=== PATIENT | female | born 1995 | race Hispanic/Latino ===

== ENCOUNTER → 2017-12-05 | Outpatient (CLI) | payer BC, MEDICARE ==
[~2017-12-05] MED LIST: LANTUS100 UNIT/1; NOVOLOG100 UNITS1
--- NOTE | 2017-12-05 08:39 | Diagnostic Imaging Report ---
PROCEDURE:US ABDOMEN LIMITED COMPARISON:Report of outside CT on 11/22/17 is uploaded but images are not available for review. INDICATIONS:Abnormal CT Of Gallbladder FINDINGS: LIVER: Size:13 cm in the right nidclavicular line, normal Appearance:Normal echogenicity, smooth contour Mass:No focal masses GALLBLADDER: Stones/Sludge:None Appearance:No wall thickening, pericholecystic fluid or hydrops. No evidence of mass. Sonographic Manuel's Sign:Negative BILE DUCTS: Intrahepatic Ducts:No dilation Extrahepatic Ducts:Common bile duct measures 0.3 cm, no dilatation. PANCREAS: Visualized portions of the neck and proximal body are normal. RIGHT KIDNEY: Size:11 cm in length Echogenicity:Normal Collecting System:No hydronephrosis Stone:None Cyst/Mass:None VESSELS: Main Portal Vein:1.3 cm, normal size with hepatopedal flow. FREE FLUID: No ascites or pleural effusions. CONCLUSION: Normal right upper quadrant ultrasound. No sonographic evidence of gallbladder mass. Dictated by: BRUNO POLANCO M.D. on 12/05/2017 at 8:44 Electronically approved by: BRUNO POLANCO M.D. on 12/05/2017 at 8:44
== END ==
LOC: US 07:56
PROVIDERS: ATTEND Family Medicine
DX: R93.2 Abnormal findings on diagnostic imaging of liver and biliary tract (principal)
CPT/HCPCS: 76705

== ENCOUNTER → 2018-03-31 | Outpatient (CLI) | payer BC ==
[~2018-03-31] MED LIST changes: +HYOSCYAMINE SULFATE 0.5 MG/ML INJ ONE; +LIDOCAINE HCL 2% LOCAL INJ 5 ML SDV VIAL INJ ONE; +PROPOFOL IV EMULSION 10 MG/ML 50 ML VIAL ONE
--- NOTE | 2018-03-31 17:39 | Diagnostic Imaging Report ---
EXAM: CT Abdomen and Pelvis WITHOUT contrast INDICATION: ^RIGHT FLANK PAIN COMPARISON: Right upper quadrant ultrasound dated TECHNIQUE: Abdomen and pelvis were scanned utilizing a multidetector helical scanner from the lung base to the pubic symphysis without administration of IV contrast. Absence of intravenous contrast decreases sensitivity for detection of focal lesions and vascular pathology. Coronal and sagittal reformations were obtained. Routine protocol was performed. IV CONTRAST: None ORAL CONTRAST: Water COMPLICATIONS: None RADIATION DOSE: Total DLP: 228.46 mGy*cm Estimated effective dose: (DLP x 0.015 x size factor) mSv CTDIvol has been reviewed. It is below the limits set by the Radiation Protocol Committee (RPC). FINDINGS: LINES and TUBES: None. LOWER THORAX: Unremarkable. Left lower lobe linear atelectasis/scarring. HEPATOBILIARY: Unenhanced liver is unremarkable. No biliary ductal dilation. GALLBLADDER: Not distended, limiting evaluation. No radio-opaque stones or sludge. No wall thickening. SPLEEN: No splenomegaly. PANCREAS: No focal masses or ductal dilatation. ADRENALS: No adrenal nodules KIDNEYS/URETERS: No hydronephrosis. Limited for evaluation of renal parenchyma without intravenous contrast. No stones. GI TRACT: No abnormal distention, wall thickening, or evidence of bowel obstruction. Appendix is normal. PELVIC ORGANS/BLADDER: Bladder is unremarkable. IUD in place which appears to be in the lower uterine segments, best seen on sagittal views. LYMPH NODES: No lymphadenopathy. VESSELS: Limited evaluation without intravenous contrast. No abdominal aortic aneurysm. PERITONEUM / RETROPERITONEUM: No free air or fluid. BONES: Unremarkable. SOFT TISSUES: Unremarkable. Umbilical piercing. IMPRESSION: Limited study without intravenous contrast. No nephrolithiasis or evidence of obstructive urolithiasis. IUD in place which is probably misplaced and within lower uterine segment. This can be further assessed with pelvic ultrasound. Signed by: Dr. Maxime Thomson MD on 03/31/2018 5:36 PM
== END ==
LOC: CT 16:06
PROVIDERS: ATTEND Family Medicine
DX: R10.9 Unspecified abdominal pain (principal); M54.5 Low back pain
CPT/HCPCS: 74176

== ENCOUNTER 2018-11-26 11:12 | Emergency (ER) | payer BC, MEDICARE ==
[~2018-11-26] VITALS: Ht 157.5 cm; Wt 54.4 kg
[~2018-11-26 11:12] MED LIST changes: -HYOSCYAMINE SULFATE 0.5 MG/ML INJ ONE; -LIDOCAINE HCL 2% LOCAL INJ 5 ML SDV VIAL INJ ONE; -PROPOFOL IV EMULSION 10 MG/ML 50 ML VIAL ONE
--- OUTSIDE RECORDS SUMMARY | 2018-11-26 11:15 | XMS REPORT ---
Author Author [facility] Address Unknown Phone Unavailable Care Team Providers Care Customer Service Clerk Name Role Phone LAMONT SINHA Unavailable Unavailable Problems This patient has no known problems. Allergies, Adverse Reactions, Alerts This patient has no known allergies or adverse reactions. Medications This patient has no known medications. Encounters Start Date/Time End Date/Time Encounter Type Admission Type Attending Clinicians Care Facility Care Department Encounter ID 2017-04-03 08:12:26 2017-04-03 08:12:26 Outpatient [facility] [id number] Results Test Description Test Time Test Comments Text Results Atomic Results Result Comments CT ABDOMEN/PELVIS WO 2018-03-31 17:27:00 [place] [address] Patient Name: JOSELIN BULLOCK MR #: [id number] : 1995 Age/Sex: 22/F Req #: [id number] Adm Physician: Ordered by: LAMONT SINHA DO Report #: [id number] Location: CT Room/Bed: Procedure: [id number] CT/CT ABDOMEN/PELVIS WO Exam Date: Exam Time: REPORT STATUS: Signed EXAM: CT Abdomen and Pelvis WITHOUT contrast INDICATION: RIGHT FLANK PAIN COMPARISON: Right upper quadrant ultrasound dated TECHNIQUE: Abdomen and pelvis were scanned utilizing a multidetector helical scanner from the lung base to the pubic symphysis without administration of IV contrast. Absence of intravenous contrast decreases sensitivity for detection of focal lesions and vascular pathology. Coronal and sagittal reformations were obtained. Routine protocol was performed. IV CONTRAST: None ORAL CONTRAST: Water COMPLICATIONS: None RADIATION DOSE: Total DLP: 228.46 mGy*cm Estimated effective dose: (DLP x 0.015 x size factor) mSv CTDIvol has been reviewed. It is below the limits set by the Radiation Protocol Committee (RPC). FINDINGS: LINES and TUBES: None. LOWER THORAX: Unremarkable. Left lower lobe linear atelectasis/scarring. HEPATOBILIARY: Unenhanced liver is unremarkable. No biliary ductal dilation. GALLBLADDER: Not distended, limiting evaluation. No radio-opaque stones or sludge. No wall thickening. SPLEEN: No splenomegaly. PANCREAS: No focal masses or ductal dilatation. ADRENALS: No adrenal nodules KIDNEYS/URETERS: No hydronephrosis. Limited for evaluation of renal parenchyma without intravenous contrast. No stones. GI TRACT: No abnormal distention, wall thickening, or evidence of bowel obstruction. Appendix is normal. PELVIC ORGANS/BLADDER: Bladder is unremarkable. IUD in place which appears to be in the lower uterine segments, best seen on sagittal views. LYMPH NODES: No lymphadenopathy. VESSELS: Limited evaluation without intravenous contrast. No abdominal aortic aneurysm. PERITONEUM / RETROPERITONEUM: No free air or fluid. BONES: Unremarkable. SOFT TISSUES: Unremarkable. Umbilical piercing. IMPRESSION: Limited study without intravenous contrast. No nephrolithiasis or evidence of obstructive urolithiasis. IUD in place which is probably misplaced and within lower uterine segment. This can be further assessed with pelvic ultrasound. Signed by: Dr. Maxime Caceres MD on 03/31/2018 5:36 PM Dictated By: Baljinder CACERES MD 1736 Transcribed By: ALLIE on 03/31/18 1736 COPY TO: LAMONT SINHA DO ABDOMEN LIMITED 2017-12-05 08:44:00 [place] [address] Patient Name: JOSELIN BULLOCK MR #: [id number] : 1995 Age/Sex: 22/F Req #: [id number] [facility] Physician: Ordered by: LAMONT SINHA DO Report #: [id number] Location: Room/Bed: Procedure: [id number] US/US ABDOMEN LIMITED Exam Date: Exam Time: REPORT STATUS: Signed PROCEDURE: US ABDOMEN LIMITED COMPARISON: Report of outside CT on 11/22/17 is uploaded but images are not available for review. INDICATIONS: Abnormal CT Of Gallbladder FINDINGS: LIVER: Size: 13 cm in the right nidclavicular line, normal Appearance: Normal echogenicity, smooth contour Mass: No focal masses GALLBLADDER: Stones/Sludge: None Appearance: No wall thickening, pericholecystic fluid or hydrops. No evidence of mass. Sonographic Manuel's Sign: Negative BILE DUCTS: Intrahepatic Ducts: No dilation Extrahepatic Ducts: Common bile duct measures 0.3 cm, no dilatation. PANCREAS: Visualized portions of the neck and proximal body are normal. RIGHT KIDNEY: Size: 11 cm in length Echogenicity: Normal Collecting System: No hydronephrosi s Stone: None Cyst/Mass: None VESSELS: Main Portal Vein: 1.3 cm, normal size with hepatopedal flow. FREE FLUID: No ascites or pleural effusions. CONCLUSION: Normal right upper quadrant ultrasound. No sonographic evidence of gallbladder mass. Dictated by: BRUNO POLANCO M.D. on 12/05/2017 at 8:44 Electronically approved by: BRUNO POLANCO M.D. on 12/05/2017 at 8:44 Dictated By: BRUNO POLANCO MD 3 Transcribed By: NERY on 12/05/17843 COPY TO: LAMONT SINHA DO
[2018-11-26] MEDS ORDERED: SODIUM CHLORIDE 0.9% 1000ML 1,000 ML IV STA (11:29)
--- NOTE | 2018-11-26 11:47 | NUR ---
NOTIFIED Noah TONY NP GLUCOSE 130, INSTRUCTED TO HOLD NS BOLUS AT THIS TIME.
[2018-11-26 12:05] LABS: BASOPHILS % 0.3 % (0.0-1.0); BILIRUBIN,URINE NEGATIVE (NEGATIVE); CLARITY,URINE CLEAR (CLEAR); COLOR,URINE YELLOW (YELLOW); EOSINOPHILS % 0.5 % (0.0-6.0); HEMATOCRIT 34.9 % (34.2-44.1); HEMOGLOBIN 11.6 g/dL (12.0-16.0); KETONES,URINE NEGATIVE (NEGATIVE); LEUKOCYTE ESTERASE ,URINE NEGATIVE (NEGATIVE); LYMPHOCYTES # (AUTO) 2.2 (1.0-3.2); LYMPHOCYTES % 27.6 % (18.0-39.1); MEAN CORPUSCULAR HEMOGLOBIN 29.6 pg (28-32); MEAN CORPUSCULAR HGB CONC 33.2 g/dL (31-35); MONOCYTES # (AUTO) 0.4 (0.2-0.8); MONOCYTES % 5.5 % (4.4-11.3); NEUTROPHILS # (AUTO) 5.1 (2.1-6.9); NEUTROPHILS % 65.7 % (38.7-80.0); NITRITE,URINE NEGATIVE (NEGATIVE); PLATELET COUNT 284 x10e3/uL (140-360); PROTEIN,URINE DIPSTICK NEGATIVE (NEGATIVE); RED BLOOD COUNT 3.92 x10e6/uL (3.6-5.1); RED CELL DISTRIBUTION WIDTH 13.2 % (11.7-14.4); URINE UROBILINOGEN 0.2 mg/dL (0.2 - 1)
[2018-11-26 12:12] LABS: PREGNANCY TEST, URINE NEGATIVE (NEGATIVE)
[2018-11-26 12:37] LABS: ALANINE AMINOTRANSFERASE 12 IU/L (0-55); ALBUMIN 4.1 g/dL (3.5-5.0); ALBUMIN/GLOBULIN RATIO 1.2 (0.8-2.0); ALKALINE PHOSPHATASE 53 IU/L (40-150); ANION GAP 10.1 mmol/L (8-16); BLOOD UREA NITROGEN 9 mg/dL (7-26); BUN/CREATININE RATIO 12 (6-25); CALCIUM 8.9 mg/dL (8.4-10.2); CARBON DIOXIDE 25 mmol/L (22-29); CHLORIDE 106 mmol/L (98-107); CREATININE, SERUM 0.73 mg/dL (0.57-1.11); EST GLOMERULAR FILTRATION RATE > 60 ML/MIN (60-); GLUCOSE 131 mg/dL (74-118); MAGNESIUM 1.9 MG/DL (1.3-2.1); POTASSIUM 3.1 mmol/L (3.5-5.1); SODIUM 138 mmol/L (136-145)
[2018-11-26 12:38] LABS: BACTERIA,URINE FEW /HPF; RBC,URINE 0-5 /HPF (0-5); WBC,URINE (MAN) >50 /HPF (0-5)
[2018-11-26 12:39] LABS: EPITHELIAL CELLS,URINE MODERATE /LPF
[2018-11-26] MEDS ORDERED: POTASSIUM CHLORIDE 20 MEQ TAB CR PO ONE (12:41)
[2018-11-26] MEDS ORDERED: CEFDINIR300 MG PO (12:49)
--- NOTE | 2018-11-26 13:20 | NUR ---
PATIENT STATED THAT SHE FELT LIKE HER BLOOD SUGAR WAS LOW. WHEN CHECKED, BLOOD SUGAR FOUND TO BE 39. PATIENT GIVEN MANUELITO CRACKERS AND ORANGE JUICE. EDMUNDO KNAPP NOTIFIED AT THIS TIME WELL. WILL CONTINUE TO MONITOR PATIENT
--- NOTE | 2018-11-26 14:00 | NUR ---
PATIENT NOTIFIED TO STOP INSULIN PUMP UNTIL BLOOD SUGARS TRENDING UPWARDS. PATIENT STATED UNDERSTANDING AND WAS ABLE TO "TEACH-BACK" SIGNS AND SYMPTOMS OF HYPOGLYCEMIA AND WHAT TO DO IF HER BLOOD SUGAR DROPS AGAIN.
[2018-11-26 14:27] VITALS: BP 119/86
== END 2018-11-26 14:30 | disposition home or self-care (01) ==
LOC: ER 11:12
DX: N30.91 Cystitis, unspecified with hematuria (principal); E11.65 Type 2 diabetes mellitus with hyperglycemia
CPT/HCPCS: 36415; 80053; 81001; 81025; 82948; 83735; 85025; 87086; 99283

== ENCOUNTER → 2019-03-12 | Outpatient (CLI) | payer BC ==
[~2019-03-12] MED LIST changes: +CEFDINIR300 MG PO
--- NOTE | 2019-03-12 10:26 | Diagnostic Imaging Report ---
Abdominal ultrasound. History: Left flank pain. Comparison: CT 03/31/2018. Discussion: Transverse and longitudinal images of the abdomen were obtained demonstrating a liver of normal size and echogenicity measuring 13.3 cm in length. The portal vein is patent with hepatopetal flow and is within normal limits measuring 8 mm in diameter. The biliary tree is within normal limits with the common bile duct measuring 3 mm in diameter. The gallbladder is normal without evidence of stones, wall thickening, or pericholecystic fluid. The sonographic Manuel's sign was negative. The kidneys are normal in size and echogenicity bilaterally without evidence of hydronephrosis, stones, or mass. The right kidney measures 10.5 cm and the left kidney measures 9.5 cm in length. The spleen is normal in size and appearance measuring 8.9 cm in length. The pancreatic head and body are visualized and are normal in appearance. The abdominal aorta and IVC are within normal limits. There is no evidence of free fluid. IMPRESSION: Normal abdominal ultrasound. No evidence of cholelithiasis or nephrolithiasis. Signed by: Ghanshyam Yan on 03/12/2019 10:22 AM
== END ==
LOC: US 08:33
PROVIDERS: ATTEND Family Medicine
DX: R10.9 Unspecified abdominal pain (principal)
CPT/HCPCS: 76700